=== PATIENT | male | born 1940 | race Caucasian/White ===

== ENCOUNTER → 2021-05-13 16:26 | Outpatient (CLI) | payer MEDICARE, SELFPAY ==
--- NOTE | ~2021-05-13 | MR_ITS ---
EXAMINATION: MR lumbar spine wo con DATE: 05/13/2021 17:35 INDICATION: Lumbar radiculopathy. TECHNIQUE: Magnetic resonance imaging (MRI) of the lumbar spine was performed without intravenous con trast. Sequences included sagittal T2-weighted FSE, sagittal T2-weighted FS FSE, sagittal T1-weighted FSE, and axial T2-weighted FSE. COMPARISON: None FINDINGS: There is a 5.2 cm cyst in right kidney. There is 5 mm retrolisthesis of L5 on S1 and 3 mm r etrolisthesis of L2 on L3. There is moderately decreased disc height from L1-L2 through L4-L5 and sev erely decreased disc height at L5-S1 with endplate remodeling. The distal spinal cord signal intensit y is normal. The conus medullaris is at L1. The following disc levels are specifically discussed: L1-L2: The disc is bulging and has an annular fissure. 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 There is mild bilateral neural foraminal stenosis. There is mild central canal stenosis. L2-L3: The disc is bulging and has an annular fissure. There is mild bilateral facet joint osteoarthr itis. There is mild bilateral neural foraminal stenosis. There is mild central canal stenosis. L3-L4: The disc is bulging and has an annular fissure. There is severe right and mild left facet join t osteoarthritis. There is mild bilateral neural foraminal stenosis. There is mild central canal sten osis. L4-L5: The disc is bulging and has an annular fissure. 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 There is mild bilateral neural foraminal stenosis. There is mild central canal stenosis. L5-S1: The disc is bulging and has an annular fissure. There is mild bilateral facet joint osteoarthr itis. There is mild bilateral neural foraminal stenosis. There is mild central canal stenosis. IMPRESSION: 1. Severe lumbar spondylosis. Reviewed, dictated and finalized at location A.
== END ==
PROVIDERS: Visit Provider Nurse Practitioner Adult Health
DX: M54.16 Radiculopathy, lumbar region (principal); M47.816 Spondylosis without myelopathy or radiculopathy, lumbar region
CPT/HCPCS: 72148

== ENCOUNTER 2023-12-28 15:34 | Emergency (ER) | payer MEDICARE, SELFPAY ==
[2023-12-28 15:41] VITALS: BP 127/81; PULSE 78; RESP 16; TEMP 36.3; O2SAT 95
--- NOTE | 2023-12-28 19:38 | PC.NURSE ---
patient left from waiting area after son used obscene language directed at this RN and stating that he was going to sascha because this RN didnt care and You are jepardizing my fathers health
== END 2023-12-28 19:38 | disposition left against medical advice (07) ==
DX: Z53.21 Procedure and treatment not carried out due to patient leaving prior to being seen by health care provider (principal)
CPT/HCPCS: 99199